=== PATIENT | male | born 1945 | race Caucasian/White ===

== ENCOUNTER 2020-02-08 15:35 | Emergency (ER) | payer MEDICARE ==
[~2020-02-08] VITALS: Ht 188 cm; Wt 109.1 kg
[~2020-02-08 15:35] MED LIST: ACET325T14 PO; ALBU8.5H5 INH; AMLO10TA4 PO; BUDE10.2 INH; CHOL2000 PO; DABI150C PO; DABI75CA3 PO; FINA5TAB4 PO; FLUT1DIS3 INH; FURO-92 PO; FURO-93 PO; FURO40TA6 PO; GLIM4TAB PO; GLIM4TAB8 PO; HYDR-3240 PO; HYDR-3246 PO; HYDR-3342 PO; INSU100C5 SQ-INSULIN; INSU100I11 SQ; INSU100V13 SC; IPRA3AMP30 NPPB; LEVO500T47 PO; LISI-167 PO; LISI-420 PO; LOSA50TA14 PO; MAGN300C PO; MAGN400T26 PO; METF10002 PO; METO25TA35 PO; MULT-6 PO; ONDA4TAB10 PO; PANT40TA5 PO; POLY17PO5 PO; POTA20PA31 PO; POTA25TA4 PO; POTA99TA3 PO; PRED10TA PO; SULF1TAB24 PO; TAMS-11 PO; TIOT18CA INH; TRAM50TA2 PO
--- NOTE | 2020-02-08 19:09 | NUR ---
DR MUSTAFA AT BEDSIDE. PT ASSESSMENT, POC DISCUSSED AND ORDERS REC'D. SBAR RPT TO KENNEDI RN
--- NOTE | 2020-02-08 19:13 | NUR ---
ASSUMED CARE OF PT AT THIS TIME.
--- NOTE | 2020-02-08 19:45 | NUR ---
NAVARRO CATHETER IRRIGATED WITH APPROX 300ML
[2020-02-08 20:25] VITALS: BP 158/81
== END 2020-02-08 20:27 | disposition home or self-care (01) ==
LOC: ED 20:06
DX: R31.0 Gross hematuria (principal); I11.0 Hypertensive heart disease with heart failure; I50.9 Heart failure, unspecified; J43.9 Emphysema, unspecified; E11.9 Type 2 diabetes mellitus without complications; I48.91 Unspecified atrial fibrillation
CPT/HCPCS: 99281